=== PATIENT | male | born 1950 | race African-American/Black ===

== ENCOUNTER 2016-07-07 18:39 | Emergency (ER) | payer OTHER ==
[2016-07-07 18:53] VITALS: BP 159/89; PULSE 72; TEMP 98.2; BMI 26.1
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
[2016-07-07] MEDS ORDERED: ACETAMINOPHEN 325 MG TABLET (FP) PO ONE (19:23)
[2016-07-07] MEDS ORDERED: ACETAMINOPHEN 325 MG TABLET (FP) ONE (19:26)
== END 2016-07-07 20:04 | disposition home or self-care (01) ==
LOC: JERFT 18:39
DX: R07.89 Other chest pain (principal); I10 Essential (primary) hypertension; E11.9 Type 2 diabetes mellitus without complications; Z79.84 Long term (current) use of oral hypoglycemic drugs; V43.52XA Car driver injured in collision with other type car in traffic accident, initial encounter; W22.11XA Striking against or struck by driver side automobile airbag, initial encounter; Y92.414 Local residential or business street as the place of occurrence of the external cause; Y99.8 Other external cause status
CPT/HCPCS: 71020-TC; 99281-25

== ENCOUNTER 2022-06-22 17:03 | Emergency (ER) | payer OTHER ==
[2022-06-22 17:10] VITALS: BP 141/69; PULSE 69; RESP 18; TEMP 98.5; BMI 26.6
[2022-06-22] MEDS ORDERED: ACETAMINOPHEN 500 MG TABLET (FP) PO ONE (18:33)
[2022-06-22] MEDS ORDERED: LIDOCAINE 5% TOPICAL PATCH TP ONE (18:33)
[2022-06-22] MEDS ORDERED: METHOCARBAMOL 500 MG TABLET PO ONE (18:33)
[2022-06-22] MEDS ORDERED: LIDOCAINE 5% TOPICAL PATCH ONE (18:41)
[2022-06-22] MEDS ORDERED: ACETAMINOPHEN 500 MG TABLET (FP) ONE (18:42)
[2022-06-22] MEDS ORDERED: METHOCARBAMOL 500 MG TABLET ONE (18:42)
[2022-06-22] MEDS ORDERED: LIDOCAINE PATCH REMOVAL MC SCH (22:00)
== END 2022-06-22 19:31 | disposition home or self-care (01) ==
LOC: JER 17:03 → JERFT 17:03
DX: M54.31 Sciatica, right side (principal)
CPT/HCPCS: 99283-25

== ENCOUNTER 2023-10-26 20:39 | Emergency (ER) | payer OTHER ==
[2023-10-26 20:46] VITALS: BP 128/69; PULSE 79; RESP 18; TEMP 98.4; BMI 25.0
== END 2023-10-26 22:54 | disposition home or self-care (01) ==
LOC: JERFT 20:39
DX: S80.12XA Contusion of left lower leg, initial encounter (principal); X58.XXXA Exposure to other specified factors, initial encounter
CPT/HCPCS: 76882-TC-RT-FY; 99284-25